=== PATIENT | male | born 1980 | race Caucasian/White ===

== ENCOUNTER 2017-09-07 23:15 | Emergency (ER) | payer OTHER, SELFPAY ==
[2017-09-07 23:34] VITALS: BP 112/76; PULSE 80; RESP 18; TEMP 36.6; O2SAT 98; BMI 35.2
--- NOTE | 2017-09-08 00:04 | PC.NURSE ---
lt lateral thumb lac approx 2cm from metal edge, distal cms intact, bleeding controlled
--- NOTE | 2017-09-08 00:45 | ED_ITS ---
HPI - Skin/Abscess/Foreign Bdy General Chief complaint: Skin/Abscess/Foreign Body Stated complaint: cut across back of thumb at work Time Seen by Provider: 09/07/17 23:59 Source: patient Mode of arrival: ambulatory Limitations: no limitations History of Present Illness HPI narrative: Patient is a 37-year-old male who presents with left thumb laceration. He was at work when he tripped and fell cutting his left thumb. No numbness or tingling not on blood thinners no decreased range of motion. complaint: laceration Review of Systems Review of Systems GENERAL: Denies chills,fever HEENT: Denies throat pain RESPIRATORY: Denies dyspnea, cough, wheezing CARDIOVASCULAR: Denies chest pain, palpitations GASTROINTESTINAL: Denies nausea, vomiting MUSCULOSKELETAL: Denies extremity pain, injury SKIN: Left thumb laceration NEUROLOGIC: Denies weakness, dizziness, headache, numbness 8 point review of systems is negative except for those stated above and HPI PFSH Medical History Healthy adult (Acute) Social History Smoking Status: Current every day smoker alcohol intake: never substance use type: does not use Exam Initial Vital Signs Initial Vital Signs: Vital Signs Temperature 97.9 F 09/07/17 23:34 Pulse Rate 80 09/07/17 23:34 Respiratory Rate 18 09/07/17 23:34 Blood Pressure 112/76 09/07/17 23:34 Pulse Oximetry 98 09/07/17 23:34 GENERAL: Well-appearing, well-nourished and in no acute distress. CARDIOVASCULAR: peripheral pulses in tact, cap refill <2 sec RESPIRATORY: No respiratory distress, speaks in full sentences without difficulty EXTREMITIES: Normal range of motion, no clubbing or edema. Neurovascularly intact NEUROLOGICAL: Cranial nerves II through XII grossly intact. Normal gait and speech. SKIN: Warm, dry, no petechiae, no rashes or lesions. Extrem Hand Left Front: 2 1. 2.5cm laceration deep structures intact good opposition flexion and extension. Neurovascularly intact. Procedures Laceration Repair Laceration 1: Site: upper extremity Side (If applicable): left Size (cm): 2.5 Description: linear Depth: simple, single layer Local Anesthetic: lidocaine 1% Amount of anesthesia used (mL): 3 Pre-repair: wound explored, irrigated extensively and deep structures intact Skin layer closed with: nylon Size (cm): 4-0 Number of sutures: 4 Technique: simple, interrupted Course Vital Signs - 8 hr 09/07/17 23:34 Temperature 97.9 F Pulse Rate 80 Respiratory Rate 18 Blood Pressure 112/76 Pulse Oximetry 98 Discharge Plan Departure Patient Disposition: Home, Self-Care Clinical Impression: Laceration of left thumb Discharge Date/Time: 09/08/17 00:54 Interventions: ED Discharge Assessment Last Done: 09/08/17 00:54 Instructions: DI for Laceration Repair Activity Restrictions/Additional Instructions: 1. Have your suture removed in 5-7 days, you may go to walk-in clinic, return to the ER or call your primary care physician. 2. No soaking in water including dishes, bathtubs, Lakes, swimming pools etc 3. Signs of infection include, but not limited to, increased redness, increased swelling, increased pain, fever and purulent drainage, if the symptoms should arise, you may need an antibiotic and you should have a reevaluation either by your primary care provider or by the emergency department.
== END 2017-09-08 00:54 | disposition home or self-care (01) ==
PROVIDERS: Emergency Provider Emergency Medicine
DX: S61.012A Laceration without foreign body of left thumb without damage to nail, initial encounter (principal); W01.0XXA Fall on same level from slipping, tripping and stumbling without subsequent striking against object, initial encounter; Y99.0 Civilian activity done for income or pay
CPT/HCPCS: 12002; 99282

== ENCOUNTER → 2021-06-09 09:04 | Outpatient (CLI) | payer OTHER, SELFPAY ==
[2021-06-09 14:05] LABS: Urine N gonorrhoeae NOT DETECTED
[2021-06-09 14:21] LABS: Urine Chlamydia NOT DETECTED
== END ==
PROVIDERS: Visit Provider Physician Assistant
DX: Z11.3 Encounter for screening for infections with a predominantly sexual mode of transmission (principal)
CPT/HCPCS: 87491; 87591

== ENCOUNTER → 2023-09-02 11:59 | Outpatient (CLI) | payer OTHER, SELFPAY ==
[2023-09-02 12:52] LABS: Influenza A - CEPHEID Flu A NEGATIVE (NEGATIVE); Influenza B - CEPHEID Flu B NEGATIVE (NEGATIVE); Respiratory Syncytial Virus Negative (Negative)
[2023-09-02 12:53] LABS: COVID-19 CEPHEID 4-PLEX PCR Negative (Negative)
== END ==
PROVIDERS: Visit Provider Physician Assistant
DX: R05.1 Acute cough (principal)
CPT/HCPCS: 0241U

== ENCOUNTER → 2023-09-02 12:19 | Outpatient (CLI) | payer OTHER, SELFPAY ==
--- NOTE | 2023-09-02 12:20 | DI.RAD.S_ITS ---
PROCEDURE: XR CHEST 2V INDICATIONS: cough TECHNIQUE: 2 views of the chest were acquired. COMPARISON: None. FINDINGS: Surgical changes and devices: None. Lungs and pleura: Hazy opacities within both lower lungs. No pleural effusions or pneumothorax. Mediastinum: Mediastinal contours are normal. Heart size is normal. Bones and chest wall: No suspicious bony abnormalities. Soft tissues appear unremarkable. IMPRESSION: There are hazy opacities within both lower lungs. Findings are suspicious for infiltrates. Dictated by: Mandeep Mccullough M.D. on 09/02/2023 at 17:03 Approved by: Mandeep Mccullough M.D. on 09/02/2023 at 17:06
== END ==
PROVIDERS: Referring Provider Physician Assistant; Visit Provider Physician Assistant
DX: J06.9 Acute upper respiratory infection, unspecified (principal); R05.1 Acute cough
CPT/HCPCS: 0241U; 71046